=== PATIENT | female | born 1970 | race Caucasian/White ===

== ENCOUNTER 2023-09-12 08:06 | Day surgery (SDC) | payer MEDICAID ==
[~2023-09-12] VITALS: Ht 160 cm; Wt 105.7 kg
[2023-09-12 09:00] VITALS: O2SAT 96
[2023-09-12] MEDS ORDERED: MEPERIDINE 100 MG INJ. 100 MG/ML VIAL ONE (09:11)
[2023-09-12] MEDS ORDERED: MIDAZOLAM HCL 5 MG/5 ML VIAL ONE (09:12)
[2023-09-12 11:30] VITALS: BP_SYST 134; PULSE 78; RESP 20
== END 2023-09-12 11:25 | disposition home or self-care (01) ==
LOC: SDS 08:06 → SMU 08:07 → SDS 11:25
PROVIDERS: ATTEND Student in an Organized Health Care Education/Training Program
DX: R19.5 Other fecal abnormalities (principal); K64.8 Other hemorrhoids; Z87.891 Personal history of nicotine dependence
CPT/HCPCS: 45378; 99153; 99152; G0378; J2250; J2175